=== PATIENT | female | born 1980 | race Caucasian/White ===

== ENCOUNTER → 2017-02-02 | Outpatient (CLI) | payer OTHER | LOC: FIMAGING 13:28 | PROVIDERS: ATTEND Obstetrics & Gynecology | DX: O09.511 Supervision of elderly primigravida, first trimester (principal); Z3A.12 12 weeks gestation of pregnancy ==

== ENCOUNTER → 2017-03-23 | Outpatient (CLI) | payer OTHER | LOC: FIMAGING 07:38 | PROVIDERS: ATTEND Obstetrics & Gynecology | DX: O09.512 Supervision of elderly primigravida, second trimester (principal); Z3A.19 19 weeks gestation of pregnancy; O99.282 Endocrine, nutritional and metabolic diseases complicating pregnancy, second trimester; E03.9 Hypothyroidism, unspecified ==

== ENCOUNTER → 2017-07-16 | Outpatient (CLI) | payer OTHER | LOC: FIMAGING 09:05 | PROVIDERS: ATTEND Obstetrics & Gynecology | DX: O09.513 Supervision of elderly primigravida, third trimester (principal); O24.410 Gestational diabetes mellitus in pregnancy, diet controlled; O99.283 Endocrine, nutritional and metabolic diseases complicating pregnancy, third trimester; E03.9 Hypothyroidism, unspecified; Z3A.35 35 weeks gestation of pregnancy ==

== ENCOUNTER 2018-08-08 11:25 | Emergency (ER) | payer OTHER ==
[2018-08-08 11:52] LABS: PLATELET COUNT 269 10^3/uL (150-400)
--- NOTE | 2018-08-08 12:40 | EDPHY ---
H & P Time Seen by Provider: 08/08/18 12:39 HPI/ROS: Chief complaint. Chest pain HPI. 30-year-old female presents emergency department 1 day history right- sided chest pain. Began last night. Initially it was worse with deep breathing and now it seems to be worse with moving her arm and less with deep breathing. No cough or fever. Recent travel the patient flew from [place] 2 days ago. No unusual leg pain or swelling. No previous history of heart or lung or thromboembolic disease. Patient her are trying to get the patient has PCOS in is taking metformin. No abdominal pain or vomiting or diarrhea ROS 10 systems were reviewed and negative with the exception of the elements mentioned in the history of present illness Past Medical/Surgical History: PCOS, hypothyroid Social History: , nonsmoker, no alcohol Smoking Status: Never smoked Physical Exam: General Appearance: Alert pleasant well-developed female mild distress vital signs are stable Eyes: Pupils equal and round no pallor or injection. ENT, Mouth: Mucous membranes are moist. Respiratory: There are no retractions, lungs are clear to auscultation. Cardiovascular: Regular rate and rhythm. Gastrointestinal: Abdomen is soft and nontender, no masses, bowel sounds normal. Neurological: Awake and alert, sensory and motor exams grossly normal. Skin: Warm and dry, no rashes. Musculoskeletal: Neck is supple nontender. Some increased discomfort with range of motion about the right shoulder Extremities symmetrical, full range of motion. Psychiatric: Patient is oriented X 3, there is no agitation. Constitutional: Initial Vital Signs Temperature (C) 36.7 C 08/08/18 11:29 Heart Rate 83 08/08/18 11:29 Respiratory Rate 18 08/08/18 11:29 Blood Pressure 116/82 H 08/08/18 11:29 O2 Sat (%) 97 08/08/18 11:29 O2 Delivery Mode Room Air Allergies/Adverse Reactions: No Known Allergies Allergy (Verified 08/08/18 11:29) Home Medications: Medication Instructions Recorded Levothyroxine 08/08/18 Metformin HCl 08/08/18 Medical Decision Making - Diagnostics EKG Interpretation: EKG interpreted by me shows normal sinus rhythm normal interval and axis. QRS is normal there is no significant ST elevation or depression. There is no arrhythmia. The rate is 80 Procedures: IV normal saline, monitor ED Course/Re-evaluation: On re-evaluation patient is stable. She and I discussed laboratory an EKG evaluation. We discussed treatment plan including criteria for return importance of follow-up further evaluation. She expresses understanding and agreement Low risk for thromboembolic disease. She has no symptoms. Wells criteria is negative. D-dimer normal. I also do not think this represents acute coronary syndrome. I think that this is likely musculoskeletal in etiology - Data Points Laboratory Results: Laboratory Results 08/08/18 11:40 08/08/18 11:40 08/08/18 08/08/18 08/08/18 11:44 11:40 11:40 WBC 4.86 10^3/uL 10^3/uL (3.80-9.50) RBC 4.89 10^6/uL 10^6/uL (4.18-5.33) Hgb 14.8 g/dL g/dL (12.6-16.3) Hct 43.3 % % (38.0-47.0) MCV 88.5 fL fL (81.5-99.8) MCH 30.3 pg pg (27.9-34.1) MCHC 34.2 g/dL g/dL (32.4-36.7) RDW 12.2 % % (11.5-15.2) Plt Count 269 10^3/uL 10^3/uL (150-400) MPV 10.3 fL fL (8.7-11.7) Neut % (Auto) 49.6 % % (39.3-74.2) Lymph % (Auto) 43.0 % % (15.0-45.0) Moore % (Auto) 5.6 % % (4.5-13.0) Eos % (Auto) 1.2 % % (0.6-7.6) Baso % (Auto) 0.6 % % (0.3-1.7) Nucleat RBC Rel Count 0.0 % % (0.0-0.2) Absolute Neuts (auto) 2.41 10^3/uL 10^3/uL (1.70-6.50) Absolute Lymphs (auto) 2.09 10^3/uL 10^3/uL (1.00-3.00) Absolute Monos (auto) 0.27 10^3/uL L 10^3/uL (0.30-0.80) Absolute Eos (auto) 0.06 10^3/uL 10^3/uL (0.03-0.40) Absolute Basos (auto) 0.03 10^3/uL 10^3/uL (0.02-0.10) Absolute Nucleated RBC 0.00 10^3/uL 10^3/uL (0-0.01) Immature Gran % 0.0 % % (0.0-1.1) Immature Gran # 0.00 10^3/uL 10^3/uL (0.00-0.10) D-Dimer < 0.27 ug/mLFEU ug/mLFEU (0.00-0.50) Sodium Potassium Chloride Carbon Dioxide Anion Gap BUN Creatinine Estimated GFR Glucose Calcium Total Bilirubin AST ALT Alkaline Phosphatase POC Troponin I 0.01 ng/mL ng/mL (0.00-0.08) Troponin I Total Protein Albumin 08/08/18 11:40 WBC RBC Hgb Hct MCV MCH MCHC RDW Plt Count MPV Neut % (Auto) Lymph % (Auto) Moore % (Auto) Eos % (Auto) Baso % (Auto) Nucleat RBC Rel Count Absolute Neuts (auto) Absolute Lymphs (auto) Absolute Monos (auto) Absolute Eos (auto) Absolute Basos (auto) Absolute Nucleated RBC Immature Gran % Immature Gran # D-Dimer Sodium 140 mEq/L mEq/L (135-145) Potassium 4.1 mEq/L mEq/L (3.3-5.0) Chloride 105 mEq/L mEq/L (97-110) Carbon Dioxide 23 mEq/l mEq/l (22-31) Anion Gap 12 mEq/L mEq/L (8-16) BUN 13 mg/dL mg/dL (7-23) Creatinine 0.6 mg/dL mg/dL (0.6-1.0) Estimated GFR > 60 Glucose 125 mg/dL H mg/dL (70-100) Calcium 9.6 mg/dL mg/dL (8.5-10.4) Total Bilirubin 0.7 mg/dL mg/dL (0.1-1.4) AST 23 IU/L IU/L (14-46) ALT 24 IU/L IU/L (9-52) Alkaline Phosphatase 57 IU/L IU/L (38-126) POC Troponin I Troponin I < 0.012 ng/mL ng/mL (0.000-0.034) Total Protein 7.5 g/dL g/dL (6.3-8.2) Albumin 4.6 g/dL g/dL (3.5-5.0) Point of Care Test Results: Chemistry 08/08/18 11:44 POC Troponin I 0.01 ng/mL ng/mL (0.00-0.08) Departure - Departure Disposition: Home, Routine, Self-Care Clinical Impression: Chest pain Qualifiers: Chest pain type: unspecified Qualified Code(s): R07.9 - Chest pain, unspecified Condition: Good Instructions: Chest Pain (ED) Additional Instructions: You're workup today is normal. I suspect that this is muscular in etiology. Tylenol 650 mg every 6 hr for discomfort Return for worsening symptoms Recheck in 2-3 days for continuing symptoms Referrals: Shruthi Cunningham MD [Primary Care Provider] - 2-3 days, if not improved
[2018-08-08 13:28] VITALS: BP 101/76
--- NOTE | 2018-08-08 15:35 | CPEKG ---
Test Reason : OPEN Blood Pressure : / mmHG Vent. Rate : 080 BPM Atrial Rate : 076 BPM P-R Int : 178 ms QRS Dur : 074 ms QT Int : 368 ms P-R-T Axes : 086 082 016 degrees QTc Int : 425 ms Sinus rhythm Confirmed by Kory Kruse ([id number]) on 08/08/2018 3:35:38 PM Referred By: Confirmed By:Kory Kruse
== END 2018-08-08 13:28 | disposition home or self-care (01) ==
DX: R07.9 Chest pain, unspecified (principal); E03.9 Hypothyroidism, unspecified; Z79.899 Other long term (current) drug therapy
CPT/HCPCS: 84484-PO